=== PATIENT | female | born 1990 | race Caucasian/White ===

== ENCOUNTER 2017-02-09 12:48 | Outpatient (CLI) | payer OTHER ==
--- NOTE | 2017-02-10 04:40 | MRI Report ---
EXAM: MRI BRAIN AND INTERNAL AUDITORY CANAL (IAC) EXAM DATE: 02/09/2017 01:58 PM. CLINICAL HISTORY: DIPLOPIA. COMPARISON: None. TECHNIQUE: Multiplanar, multisequence T1-weighted and fluid-sensitive MRI sequences of the brain and IACs were performed. Other: Axial and coronal sequences through the orbits.. IV Contrast: Without and with. FINDINGS: Brain Volume: Normal for age. Parenchyma/Dura: No masses, infarcts, or hemorrhage. No white matter lesions identified. No parenchym al microhemorrhages. Orbits: The optic globes bilaterally are unremarkable. The optic nerves bilaterally are unremarkable. The remaining orbital structures bilaterally are unremarkable. Internal Auditory Canals (IACs): Normal. No cranial nerve lesion or inflammatory process identified. The cerebellopontine angles bilaterally, the internal auditory canals bilaterally, the cochleas bilat erally, and the vestibular apparatuses bilaterally are unremarkable. Ventricles/Cisterns: Normal. No hydrocephalus. Sinuses: Normal. Bones: Normal. Other: None. IMPRESSION: 1. Unremarkable noncontrast evaluation of the brain parenchyma. 2. The optic globes bilaterally, the optic nerves bilaterally, and the remaining orbital structures b ilaterally are unremarkable. 3. No cranial nerve abnormality within the visualized cisternal segments of the cranial nerves. 4. The cerebellopontine angles bilaterally, the internal auditory canals bilaterally, the cochleas bi laterally, and the vestibular apparatuses bilaterally are unremarkable. [facility] Referring Provider Line: [phone] SITE ID: [id number]
== END 2017-02-09 12:49 | disposition home or self-care (01) ==
LOC: DI 12:48
PROVIDERS: ATTEND Psychiatry & Neurology Neurology
DX: H53.2 Diplopia (principal)
CPT/HCPCS: 70551

== ENCOUNTER 2017-04-04 11:10 | Emergency (ER) | payer OTHER ==
[2017-04-04 11:24] VITALS: BP 107/77
[2017-04-04 11:58] LABS: BILIRUBIN,URINE NEGATIVE (NEGATIVE)
[2017-04-04 12:02] LABS: HCG UR QUAL NEGATIVE; UA w/ MICROSCOPIC CHARGE YES
--- NOTE | 2017-04-04 12:16 | ED Physician Documentation ---
History of Present Illness - Stated complaint Stated Complaint: FEMALE - Chief complaint Chief Complaint: General - History obtained from History obtained from: Patient - History of Present Illness Timing: Other (This is a young otherwise healthy woman who has frequent UTIs. About 2 weeks ago [place] got [place] says she has a positive urinalysis and was started on Macrobid which did not help. 2 days ago the pain moved up into her kidneys, right greater than left without nausea or fevers. She was switched to Cipro but still has not had any relief. Continues to have urinary frequency. She is on her menses currently.) Review of Systems Constitutional: reports: Reviewed and negative. denies: Fever, Chills Cardiac: reports: Reviewed and negative Respiratory: reports: Reviewed and negative PD PAST MEDICAL HISTORY - Present Medications Home Medications: Ambulatory Orders Medication Instructions Recorded Confirmed Ciprofloxacin HCl [Cipro] 500 mg PO 04/04/17 HYDROcod/ACETAM 5/325 [[place] 5/325] 1 - 2 ea PO Q6H PRN #15 tablet 04/04/17 Sulfamethoxazole/Trimethoprim 1 each PO BID 7 Days tablet 04/04/17 [Sulfamethoxazole-Tmp Ds Tablet] - Allergies Allergies/Adverse Reactions: Allergies Allergy/AdvReac Type Severity Reaction Status Date / Time No Known Drug Allergies Allergy Verified 04/04/17 11:24 PD ED PE NORMAL - Vitals Vital signs reviewed: Yes - General General: Alert and oriented X 3, No acute distress - Abdomen Abdomen: Soft, Non tender - Back Back: No CVA TTP, No spinal TTP - Neuro Neuro: Alert and oriented X 3, Normal speech - Psych Psych: Normal mood, Normal affect Results - Vitals Vitals: Vital Signs - 24 hr 04/04/17 11:22 Temperature 36.7 C Heart Rate 81 Respiratory 16 Rate Blood Pressure 107/77 O2 Saturation 100 Oxygen O2 Source Room air - Labs Labs: Laboratory Tests 04/04/17 04/04/17 11:28 11:28 Urine Color YELLOW Urine Clarity CLEAR Urine pH 6.0 Ur Specific [place] 1.020 1.020 Urine Protein NEGATIVE Urine Glucose (UA) NEGATIVE Urine Ketones NEGATIVE Urine Occult Blood MODERATE H Urine Nitrite NEGATIVE Urine Bilirubin NEGATIVE Urine Urobilinogen 0.2 (NORMAL) Ur Leukocyte Esterase NEGATIVE Urine RBC 11-25 H Urine WBC 0-3 Ur Squamous Epith Cells NONE SEEN Urine Bacteria None Seen Ur Microscopic Review INDICATED Urine HCG, Qual NEGATIVE PD MEDICAL DECISION MAKING - ED course ED course: 27-year-old woman with persistent UTI symptoms and now flank pain, urinalysis shows only blood, but she is on her menses. Pattern does not fit renal colic. Could be incompletely treated pyelonephritis, we also discussed the possibility of interstitial cystitis or muscular back pain. I will switch her up to Bactrim and she needs some pain pills to. Departure - Departure Disposition: 01 Home, Self Care Clinical Impression: Pyelonephritis Condition: Good Record reviewed to determine appropriate education?: Yes Instructions: Pyelonephritis Dc Prescriptions: HYDROcod/ACETAM 5/325 [[place] 5/325] 1 - 2 ea PO Q6H PRN #15 tablet PRN Reason: Pain Sulfamethoxazole/Trimethoprim [Sulfamethoxazole-Tmp Ds Tablet] 1 each PO BID 7 Days tablet Comments: [place] 2 [place]. Return if worse. Do not drink or drive while taking narcotic pain medication. Note that many narcotic pain relievers also contain Tylenol/acetaminophen. Please ensure that your total dose of acetaminophen from all sources does not exceed 3 g (3000 mg) per day. You may get constipated while on this medication. Take a stool softener such as Colace twice a day while you are on it. Also add an [id number] laxative such as senna or MiraLAX on any day that you do not have a bowel movement. If you received a narcotic pain medication or sedative while in the emergency department, do not drive for the next 24 hours. Discharge Date/Time: 04/04/17 12:19
[2017-04-04 12:34] LABS: WBC,URINE 0-3 /HPF (0-5)
== END 2017-04-04 12:19 | disposition home or self-care (01) ==
LOC: ED 11:10
DX: N12 Tubulo-interstitial nephritis, not specified as acute or chronic (principal)
CPT/HCPCS: 81001; 81003; 81025; 99283

== ENCOUNTER 2017-12-06 10:21 | Emergency (ER) | payer OTHER ==
[2017-12-06] MEDS ORDERED: SUCRALFATE 1 GM/10 ML UDC PO STA (11:14)
[2017-12-06] MEDS ORDERED: MAG HYDROX/AL HYDROX/SIMETH 30 ML UDC PO STA (11:14)
[2017-12-06] MEDS ORDERED: PHENobarb/HYOSCY/ATROPINE/SCOP 5 ML UDC PO STA (11:14)
[2017-12-06] MEDS ORDERED: LIDOCAINE VISCOUS 2% 15 ML UDC MM STA (11:14)
[2017-12-06] MEDS ORDERED: FAMOTIDINE 20 MG TABLET PO STA (11:15)
--- NOTE | 2017-12-06 11:16 | ED Physician Documentation ---
History of Present Illness - Stated complaint Stated Complaint: CHEST PX/SOA - Chief complaint Chief Complaint: General - History obtained from History obtained from: Patient - History of Present Illness Timing: How many weeks ago (several) Pain level max: 7 Pain level now: 5 - Additonal information Additional information: Patient is a 27-year-old female who presents to the emergency department complaining of substernal chest pain for the past several weeks. This used to occur only at night when she laid down to go to sleep, but has now become constant. Has seen her primary care provider for this. Has not had any testing done. She does smoke. She also uses control. She has not had any recent travel or immobilization. No calf pain or swelling. States that the pain worsens when she eats as well. Has not taken any medications. Review of Systems Constitutional: denies: Fever, Chills Throat: denies: Sore throat Respiratory: denies: Cough, Wheezing GI: denies: Vomiting, Diarrhea : denies: Now EGA Skin: denies: Rash Musculoskeletal: denies: Neck pain, Back pain Neurologic: denies: Headache PD PAST MEDICAL HISTORY - Past Medical History Past Medical History: No - Past Surgical History Past Surgical History: No - Present Medications Home Medications: Ambulatory Orders Medication Instructions Recorded Confirmed Famotidine [Pepcid] 20 mg PO BID #60 tablet 12/06/17 Meloxicam [Mobic] 15 mg PO DAILY PRN #20 tablet 12/06/17 - Allergies Allergies/Adverse Reactions: Allergies Allergy/AdvReac Type Severity Reaction Status Date / Time No Known Drug Allergies Allergy Verified 12/06/17 10:32 - Living Situation Living Situation: reports: With family Living Arrangement: reports: At home - Social History Does the pt smoke?: Yes Does the pt drink ETOH?: Yes Does the pt have substance abuse?: No - Family History Family history: reports: Non contributory PD ED PE NORMAL - Vitals Vital signs reviewed: Yes - General General: Alert and oriented X 3, No acute distress - HEENT HEENT: Moist mucous membranes - Neck Neck: Supple, no meningeal sign - Cardiac Cardiac: RRR, Strong equal pulses - Respiratory Respiratory: No respiratory distress, Clear bilaterally - Abdomen Abdomen: Soft, Other (Mild epigastric tenderness to palpation, no peritoneal signs. Negative Recinos sign.) - Back Back: No CVA TTP - Derm Derm: Warm and dry - Extremities Extremities: No edema, No calf tenderness / cord - Neuro Neuro: Alert and oriented X 3 - Psych Psych: Normal mood, Normal affect Results - Vitals Vitals: Vital Signs - 24 hr 12/06/17 12/06/17 12/06/17 10:24 11:18 12:44 Temperature 36.7 C 36.7 C 36.6 C Heart Rate 78 64 57 L Respiratory 16 14 12 Rate Blood Pressure 114/74 106/78 96/67 O2 Saturation 100 100 98 Oxygen O2 Source Room air - EKG (time done) 1031 Rate: Rate (enter#) (91) Rhythm: NSR [place]: Normal Intervals: Normal [place] QRS: Normal Ischemia: Normal ST segments - Labs Labs: Laboratory Tests 12/06/17 12/06/17 12/06/17 11:30 11:30 11:30 WBC 6.6 RBC 4.44 Hgb 13.3 Hct 39.8 MCV 89.6 MCH 30.1 MCHC 33.6 RDW 13.7 Plt Count 222 MPV 6.4 L Neut # (Auto) 3.7 Lymph # (Auto) 2.3 [place] # (Auto) 0.5 Eos # (Auto) 0.1 Baso # (Auto) 0.1 Absolute Nucleated RBC 0.00 Nucleated RBC % 0.0 D-Dimer Sodium 135 Potassium 3.6 Chloride 106 Carbon Dioxide 24 Anion Gap 5.0 L BUN 13 Creatinine 0.8 Estimated GFR (MDRD) 85 L Glucose 97 Calcium 9.0 Total Bilirubin 0.5 AST 19 ALT 18 Alkaline Phosphatase 64 Troponin I < 0.04 Total Protein 6.8 Albumin 4.2 Globulin 2.6 Albumin/Globulin Ratio 1.6 Lipase 31 12/06/17 11:30 WBC RBC Hgb Hct MCV MCH MCHC RDW Plt Count MPV Neut # (Auto) Lymph # (Auto) [place] # (Auto) Eos # (Auto) Baso # (Auto) Absolute Nucleated RBC Nucleated RBC % D-Dimer < 200.0 L Sodium Potassium Chloride Carbon Dioxide Anion Gap BUN Creatinine Estimated GFR (MDRD) Glucose Calcium Total Bilirubin AST ALT Alkaline Phosphatase Troponin I Total Protein Albumin Globulin Albumin/Globulin Ratio Lipase - Rads (name of study) cxr Radiology: Prelim report reviewed, EMP read contemporaneously, See rad report ( normal) PD MEDICAL DECISION MAKING - ED course Complexity details: reviewed results, re-evaluated patient, considered differential, d/w patient ED course: Patient is a 27-year-old female who presents to the emergency department with chest pain for the past several weeks, becoming more constant now. Unclear etiology, possible gastritis versus GERD? Possible pleurisy? No evidence of pulmonary embolus. No evidence of acute coronary syndrome. No pneumothorax. No aortic dissection. Does feel better after GI cocktail. Will place her on anti-inflammatories as well as H2 blockers for home and follow-up with her doctor. Patient counseled regarding signs and symptoms for which I believe and urgent re-evaluation would be necessary. Patient with good understanding of and agreement to plan and is comfortable going home at this time This document was made in part using voice recognition software. While efforts are made to proofread this document, sound alike and grammatical errors may occur. Departure - Departure Disposition: 01 Home, Self Care Clinical Impression: Chest pain Qualifiers: Chest pain type: unspecified Qualified Code(s): R07.9 - Chest pain, unspecified Condition: Good Instructions: ED Chest Pain Atypical Unkn Cause Follow-Up: Monica Yanes ARNP [Primary Care Provider] - Within 1 week Prescriptions: Famotidine [Pepcid] 20 mg PO BID #60 tablet Meloxicam [Mobic] 15 mg PO DAILY PRN #20 tablet PRN Reason: pain Comments: Return if you worsen. The cause of your symptoms is unclear. Follow-up with your doctor for further care. Discharge Date/Time: 12/06/17 12:48
[2017-12-06 11:37] LABS: BASOPHILS # (AUTO) 0.1 10^3/uL (0.0-0.1); BASOPHILS % (AUTO) 0.8 %; EOSINOPHILS # (AUTO) 0.1 10^3/uL (0.0-0.7); EOSINOPHILS % (AUTO) 1.5 %; HGB - HEMOGLOBIN 13.3 g/dL (12.0-16.0); LYMPHOCYTES # (AUTO) 2.3 10^3/uL (1.5-3.5); LYMPHOCYTES % (AUTO) 34.2 %; MEAN CORPUSCULAR HEMOGLOBIN 30.1 pg (27.0-31.0); MEAN CORPUSCULAR HGB CONC 33.6 g/dL (32.0-36.0); MEAN CORPUSCULAR VOLUME 89.6 fL (81.0-99.0); MEAN PLATELET VOLUME 6.4 fL (7.9-10.8); MONOCYTES # (AUTO) 0.5 10^3/uL (0.0-1.0); MONOCYTES % (AUTO) 7.2 %; NEUTROPHILS # (AUTO) 3.7 10^3/uL (1.5-6.6); NEUTROPHILS % (AUTO) 56.3 %; PLT - PLATELET COUNT 222 10^3/uL (130-450); RED BLOOD COUNT 4.44 10^6/uL (4.20-5.40); RED CELL DISTRIBUTION WIDTH 13.7 % (12.0-15.0); WHITE BLOOD COUNT 6.6 x10^3/uL (4.8-10.8)
--- NOTE | 2017-12-06 11:41 | XRAY Report ---
EXAM: CHEST RADIOGRAPHY EXAM DATE: 12/06/2017 11:28 AM. CLINICAL HISTORY: Chest pain. COMPARISON: None available. TECHNIQUE: 1 view. FINDINGS: Lungs/Pleura: No focal opacities evident. No pleural effusion. No pneumothorax. Mediastinum: Within exam limitations, the cardiomediastinal contour is normal. Other: None. IMPRESSION: Grossly clear. [facility] Referring Provider Line: [phone] SITE ID: [id number]
[2017-12-06 11:50] LABS: ALBUMIN 4.2 g/dL (3.2-5.5); ALBUMIN/GLOBULIN RATIO 1.6 (1.0-2.2); BILIRUBIN,TOTAL 0.5 mg/dL (0.2-1.0); CREATININE 0.8 mg/dL (0.4-1.0); TOTAL PROTEIN 6.8 g/dL (6.7-8.2)
[2017-12-06] MEDS ORDERED: DEXAMETHASONE 10 MG/ML VIAL PO STA (12:15)
[2017-12-06] MEDS ORDERED: MELOXICAM 7.5 MG TABLET PO STA (12:16)
[2017-12-06 12:45] VITALS: BP 96/67
== END 2017-12-06 12:48 | disposition home or self-care (01) ==
LOC: ED 10:21
DX: R07.9 Chest pain, unspecified (principal); F17.200 Nicotine dependence, unspecified, uncomplicated
CPT/HCPCS: 71045; 80053; 83690; 84484; 85025; 85379; 93005; 99283; 99284; A9270; 36415

== ENCOUNTER 2017-12-28 18:37 | Emergency (ER) | payer OTHER ==
[2017-12-28 19:03] LABS: BILIRUBIN,URINE NEGATIVE (NEGATIVE); GLUCOSE, URINE (UA) NEGATIVE (NEGATIVE); KETONES,URINE (UA) NEGATIVE (NEGATIVE); LEUKOCYTE ESTERASE, URINE NEGATIVE (NEGATIVE); NITRITE,URINE NEGATIVE (NEGATIVE); OCCULT BLOOD,URINE NEGATIVE (NEGATIVE); PROTEIN,URINE NEGATIVE (NEGATIVE); UROBILINOGEN,URINE 0.2 (NORMAL) E.U./dL (NORMAL)
[2017-12-28 19:06] LABS: CLARITY,URINE CLEAR (CLEAR); HCG UR QUAL NEGATIVE
--- NOTE | 2017-12-28 20:00 | ED Physician Documentation ---
PD HPI ABD PAIN - Stated complaint Stated Complaint: ABD/LT LEG PX - Chief complaint Chief Complaint: Abd Pain - History obtained from History obtained from: Patient - History of Present Illness Timing - onset: Today Timing - duration: Days (1) Timing - details: Abrupt onset, Still present, Waxing and waning Quality: Cramping, Aching, Pain Location: Suprapubic, LLQ Radiation: Lower back Improved by: No: Eating, BM Worsened by: Position (worse lying down and on left side), Palpation. No: Eating, Breathing Associated symptoms: Nausea, Dysuria (mild today), Vaginal dc (clear watery today). No: Fever, Vomiting, Diarrhea, Constipation, Loss of appetite, Vaginal bleeding Similar symptoms before: Has not had sx before Recently seen: Clinic (had Nexplanon removed 1 1/2 months ago. Otherwise no recent visits.) Review of Systems Constitutional: reports: Myalgias. denies: Fever, Chills Nose: denies: Rhinorrhea / runny nose, Congestion Throat: denies: Sore throat Cardiac: denies: Chest pain / pressure Respiratory: denies: Dyspnea, Cough GI: reports: Abdominal Pain (lower abd central and left), Nausea. denies: Abdominal Swelling, Vomiting, Constipation, Diarrhea : reports: Dysuria, Discharge (watery), Irregular menses (had had nexplanon until recently. Removed 1 1/2 months ago.). 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 : None HEENT: None Psych: Anxiety Musculoskeletal: None Derm: None - Past Surgical History Past Surgical History: No /[employer] ARCHITECT: section - Present Medications Home Medications: Ambulatory Orders Medication Instructions Recorded Confirmed Aspirin [Adult Aspirin] 81 mg 12/28/17 HYDROcod/ACETAM 5/325 [[place] 5/325] 1 tab PO Q6H PRN #12 tablet 12/28/17 Metronidazole [Flagyl] 500 mg PO BID #14 tablet 12/28/17 Naproxen 375 mg PO BID #20 tablet 12/28/17 - Allergies Allergies/Adverse Reactions: Allergies Allergy/AdvReac Type Severity Reaction Status Date / Time No Known Drug Allergies Allergy Verified 12/06/17 10:32 - Social History Does the pt smoke?: Yes Smoking Status: Current every day smoker Does the pt drink ETOH?: Yes Does the pt have substance abuse?: No - Immunizations Immunizations are current?: Yes - POLST Patient has POLST: No PD ED PE NORMAL - Vitals Vital signs reviewed: Yes - General General: Alert and oriented X 3, Well developed/nourished - HEENT HEENT: Pharynx benign - Neck Neck: Supple, no meningeal sign, No adenopathy - Cardiac Cardiac: RRR, No murmur - Respiratory Respiratory: Clear bilaterally - Abdomen Abdomen: Normal bowel sounds, Soft, Non distended, No organomegaly, Other (mild tenderness without guarding lower abd and left side. No percussion tenderness. ) - Female Female : Surface Hydrologist present, Other (external normal. Vault with clear/mucous watery discharge (aside from U/S gel). No cervicitis per se. Vaginal harvey some red. ) - Rectal Rectal: Deferred - Back Back: No CVA TTP - Derm Derm: Normal color, Warm and dry, No rash Results - Vitals Vitals: Vital Signs - 24 hr 12/28/17 12/28/17 12/28/17 18:50 22:09 22:13 Temperature 36.6 C Heart Rate 86 66 Respiratory 16 14 Rate Blood Pressure 105/83 H 101/70 O2 Saturation 100 100 12/28/17 23:59 Temperature 36.7 C Heart Rate 60 Respiratory 18 Rate Blood Pressure 102/73 O2 Saturation 99 Oxygen O2 Source Room air - Labs Labs: Microbiology 12/28/17 23:05 Wet Prep - Final Vaginal Laboratory Tests 12/28/17 18:45 Urine Color LT. YELLOW Urine Clarity CLEAR Urine pH 6.0 Ur Specific [place] <=1.005 Urine Protein NEGATIVE Urine Glucose (UA) NEGATIVE Urine Ketones NEGATIVE Urine Occult Blood NEGATIVE Urine Nitrite NEGATIVE Urine Bilirubin NEGATIVE Urine Urobilinogen 0.2 (NORMAL) Ur Leukocyte Esterase NEGATIVE Ur Microscopic Review NOT INDICATED Urine Culture Comments NOT INDICATED Urine HCG, Qual NEGATIVE - Rads (name of study) pelvic U/S Radiology: Prelim report reviewed (small cyst on right. No free fluid. Normal flow in ovaries. ) PD MEDICAL DECISION MAKING - ED course Complexity details: reviewed results, considered differential, d/w patient - Sepsis Event Vital Signs: Vital Signs - 24 hr 12/28/17 12/28/17 12/28/17 18:50 22:09 22:13 Temperature 36.6 C Heart Rate 86 66 Respiratory 16 14 Rate Blood Pressure 105/83 H 101/70 O2 Saturation 100 100 12/28/17 23:59 Temperature 36.7 C Heart Rate 60 Respiratory 18 Rate Blood Pressure 102/73 O2 Saturation 99 Oxygen O2 Source Room air Departure - Departure Disposition: 01 Home, Self Care Clinical Impression: Pelvic pain, Bacterial vaginitis Condition: Stable Record reviewed to determine appropriate education?: Yes Instructions: ED Vaginosis Bacterial Follow-Up: Cecilia Covarrubias MD [Primary Care Provider] - Prescriptions: HYDROcod/ACETAM 5/325 [[place] 5/325] 1 tab PO Q6H PRN #12 tablet PRN Reason: Pain Metronidazole [Flagyl] 500 mg PO BID #14 tablet Naproxen 375 mg PO BID #20 tablet Comments: There are bacteria seen on the swab vaginal. This shows a bacterial vaginosis which is bacteria that are present naturally in the vaginal area that over grew and are causing symptoms. We did do a culture for other type infections and that will result in 2-3 days and will call you if those are positive. For now we will treat the bacterial vaginitis with metronidazole twice daily for a week. The inflammation and pain from it will be treated with naproxen twice daily for a week and add Tylenol or hydrocodone if needed for pain. This should taper down and improve over the next 3-5 days. Recheck if not better during that time. Drink lots of fluids. No alcohol use during the next week while taking the antibiotic as it will interact and cause symptoms. Discharge Date/Time: 12/29/17 00:08
[2017-12-28] MEDS: MORPHINE 10 MG/ML VIAL IVP STA ×2 (21:01→23:18)
[2017-12-28] MEDS: KETOROLAC 60 MG/2 ML VIAL IVP STA (21:01)
[2017-12-28] MEDS: ONDANSETRON 4 MG/2 ML VIAL IVP STA (21:01)
[2017-12-28] MEDS: SODIUM CHLORIDE 0.9% 1,000 ML IV ONE (21:02)
--- NOTE | 2017-12-28 21:55 | Ultrasound Report ---
Procedure Date: 12/28/2017 Accession Number: [id number] / [id number] Procedure: US - Pelvic w/Transvag+Doppler Ltd CPT Code: FULL RESULT: EXAM: PELVIC ULTRASOUND. EXAM DATE: 12/28/2017 09:25 PM. CLINICAL HISTORY: Lower abdominal pain for few days. LMP 11/06/2017. . COMPARISON: None. TECHNIQUE: Realtime transabdominal pelvic scan performed to identify the uterus and adnexa and as an overview of other pelvic structures, followed by transvaginal scan to provide greater detail of the uterus and adnexa, with static image documentation. FINDINGS: Uterus: 8.5 x 3.5 x 5.7 cm, volume 88.7 cc. Anteverted position. Normal overall size and echotexture. Masses: None. Endometrium: 5 mm. Normal. Cervix: Unremarkable. Right Ovary: 4.1 x 3.0 x 4.1 cm, volume 26 cc. Normal blood flow. 2.6 x 2.2 x 2.6 cm simple cyst. Left Ovary: 2.5 x 2.5 x 2.4 cm, volume 7.7 cc. Normal echotexture and blood flow. Free Fluid: None. Other: None. IMPRESSION: 1. No ovarian torsion. 2. 2.6 cm simple right ovarian cyst. [facility]
[2017-12-28] MEDS: HYDROcod/ACET 5/325 Prepack 4 PO STA (23:18)
[2017-12-28] MEDS: metroNIDAZOLE 250 MG TABLET PO STA (23:18)
[2017-12-28 23:59] VITALS: BP 102/73
== END 2017-12-29 00:08 | disposition home or self-care (01) ==
LOC: ED 18:37
DX: R10.2 Pelvic and perineal pain (principal); N76.0 Acute vaginitis; B96.89 Other specified bacterial agents as the cause of diseases classified elsewhere; F17.200 Nicotine dependence, unspecified, uncomplicated; Z79.82 Long term (current) use of aspirin
CPT/HCPCS: 76830; 76856; 81003; 81025; 87210; 87491; 87591; 93976; 96361; 96374; 96375; 96376; 99284; A9270; 81001; 87086

== ENCOUNTER 2017-12-30 19:13 | Emergency (ER) | payer OTHER ==
[2017-12-30 19:18] VITALS: BP 137/87
--- NOTE | 2017-12-30 21:38 | ED Physician Documentation ---
History of Present Illness - Stated complaint Stated Complaint: CHEST PX/NUMBNESS - Chief complaint Chief Complaint: General - History obtained from History obtained from: Patient - History of Present Illness Timing: How many days ago (2) Pain level max: 0 Pain level now: 0 Improved by: nothing Worsened by: taking the flagyl - Additonal information Additional information: Patient is a 27-year-old female who was recently seen and treated for bacterial vaginitis. She was placed on Flagyl she states approximately 2 hours after taking her first dose she developed left-sided tingling on her hand and foot. This has since resolved. It recurred again when she took her next dose of Flagyl. She believes that she is having side effects of the medication. Denies any chest pain to me. Denies any vomiting or diarrhea. No dysuria. She was seen recently for chest pain with a negative workup. Review of Systems Constitutional: denies: Fever, Chills Ears: denies: Ear pain Nose: denies: Rhinorrhea / runny nose, Congestion GI: denies: Nausea, Vomiting, Diarrhea : denies: Now EGA Neurologic: reports: Numbness (tingling, but no numbness). 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 - Present Medications Home Medications: Ambulatory Orders Medication Instructions Recorded Confirmed Aspirin [Adult Aspirin] 81 mg 12/28/17 HYDROcod/ACETAM 5/325 [[place] 5/325] 1 tab PO Q6H PRN #12 tablet 12/28/17 Metronidazole [Flagyl] 500 mg PO BID #14 tablet 12/28/17 Naproxen 375 mg PO BID #20 tablet 12/28/17 Clindamycin HCl [Clindamycin 300MG 300 mg PO BID #14 capsule 12/30/17 CAP] - Allergies Allergies/Adverse Reactions: Allergies Allergy/AdvReac Type Severity Reaction Status Date / Time No Known Drug Allergies Allergy Verified 12/30/17 19:18 - Social History Does the pt smoke?: Yes Smoking Status: Current every day smoker Does the pt drink ETOH?: Yes Does the pt have substance abuse?: No - Immunizations Immunizations are current?: Yes - POLST Patient has POLST: No PD ED PE NORMAL - Vitals Vital signs reviewed: Yes - General General: Alert and oriented X 3, No acute distress - HEENT HEENT: PERRL, Ears normal, Moist mucous membranes, Pharynx benign - Neck Neck: Supple, no meningeal sign, No JVD, No bruit - Cardiac Cardiac: RRR, No murmur, Strong equal pulses - Respiratory Respiratory: No respiratory distress, Clear bilaterally - Abdomen Abdomen: Normal bowel sounds, Soft, Non tender, Non distended - Back Back: No spinal TTP - Derm Derm: Warm and dry - Extremities Extremities: Normal ROM s pain, No edema - Neuro Neuro: Alert and oriented X 3, independent insurance 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 Possible side effects from the Flagyl as this does coincide when she takes the pills. Therefore we will change her to clindamycin and see how she tolerates this. She is otherwise well-appearing, nontoxic. NIH stroke scale of 0. Patient counseled regarding signs and symptoms for which I believe and urgent re-evaluation would be necessary. Patient with good understanding of and agreement to plan and is comfortable going home at this time This document was made in part using voice recognition software. While efforts are made to proofread this document, sound alike and grammatical errors may occur. - Sepsis Event Vital Signs: Oxygen O2 Source Room air Departure - Departure Disposition: 01 Home, Self Care Clinical Impression: Bacterial vaginitis Condition: Good Instructions: ED Vaginosis Bacterial Follow-Up: FAUSTO TOSCANO PA-C [Primary Care Provider] - Within 3 Days Prescriptions: Clindamycin HCl [Clindamycin 300MG CAP] 300 mg PO BID #14 capsule Comments: Stop the metronidazole/Flagyl. It appears that you are having a reaction to this. Will instead trial you on clindamycin to see if this resolves your symptoms. Return if you worsen Discharge Date/Time: 12/30/17 21:41
== END 2017-12-30 21:41 | disposition home or self-care (01) ==
LOC: ED 19:13
DX: N76.0 Acute vaginitis (principal); F17.200 Nicotine dependence, unspecified, uncomplicated
CPT/HCPCS: 93005; 99283

== ENCOUNTER 2018-01-02 14:36 | Emergency (ER) | payer OTHER ==
[2018-01-02] MEDS ORDERED: MAG HYDROX/AL HYDROX/SIMETH 30 ML UDC PO STA (15:03)
[2018-01-02] MEDS ORDERED: LIDOCAINE VISCOUS 2% 15 ML UDC MM STA (15:03)
--- NOTE | 2018-01-02 15:10 | ED Physician Documentation ---
PD HPI ABD PAIN - Stated complaint Stated Complaint: LT SIDE PX - Chief complaint Chief Complaint: Abd Pain - History obtained from History obtained from: Patient - History of Present Illness Timing - onset: Other (27-year-old woman with history of 3 C-sections presents with left flank and upper abdominal pain radiating to the left pelvis that is been going on for several days. She was seen here on Wednesday and diagnosed with BV, wet mount showed clue cells but less than 20%. She denies any vaginal discharge or itching. She was taking pain medication and Flagyl. She had a side effect from the Flagyl and was switched to clindamycin but continues to have the pain without change. She says the pain does get worse if she eats but also if she moves and she has been nauseous with a poor appetite but she has not had any vomiting. There is no fever or hematuria or urinary complaints except for urinary frequency. She doubts . She has had kidney stone in the past but says this is somewhat different.) Review of Systems Constitutional: reports: Fatigue. denies: Fever, Chills Throat: denies: Sore throat Cardiac: denies: Chest pain / pressure, Palpitations Respiratory: denies: Dyspnea, Cough GI: reports: Abdominal Pain, Nausea. denies: Vomiting, Constipation, Diarrhea, Hematemesis, Bloody / black stool : reports: Frequency. denies: Dysuria PD PAST MEDICAL HISTORY - Past Medical History Cardiovascular: None Respiratory: None Neuro: None Endocrine/Autoimmune: None GI: None SERVICE DIRECTOR: None : None HEENT: None Psych: Anxiety Musculoskeletal: None Derm: None - Past Surgical History Past Surgical History: No /SERVICE DIRECTOR: section - Present Medications Home Medications: Ambulatory Orders Medication Instructions Recorded Confirmed Aspirin [Adult Aspirin] 81 mg 12/28/17 HYDROcod/ACETAM 5/325 [[place] 5/325] 1 tab PO Q6H PRN #12 tablet 12/28/17 Metronidazole [Flagyl] 500 mg PO BID #14 tablet 12/28/17 Naproxen 375 mg PO BID #20 tablet 12/28/17 Clindamycin HCl [Clindamycin 300MG 300 mg PO BID #14 capsule 12/30/17 CAP] Cyclobenzaprine [Flexeril] 10 mg PO TID PRN #20 tablet 01/02/18 Polyethylene Glycol 3350 [Miralax] 17 gm PO DAILY PRN #1 bottle 01/02/18 - Allergies Allergies/Adverse Reactions: Allergies Allergy/AdvReac Type Severity Reaction Status Date / Time No Known Drug Allergies Allergy Verified 12/30/17 19:18 - Social History Does the pt smoke?: Yes Smoking Status: Current every day smoker Does the pt drink ETOH?: Yes Does the pt have substance abuse?: No - Family History Family history: reports: Non contributory - Immunizations Immunizations are current?: Yes - POLST Patient has POLST: No PD ED PE NORMAL - Vitals Vital signs reviewed: Yes - General General: Alert and oriented X 3, No acute distress - Cardiac Cardiac: RRR, No murmur - Respiratory Respiratory: No respiratory distress, Clear bilaterally - Abdomen Abdomen: Normal bowel sounds, Soft, Non tender - Back Back: No CVA TTP, No spinal TTP - Extremities Extremities: No edema, No calf tenderness / cord - Neuro Neuro: Alert and oriented X 3, Normal speech Results - Vitals Vitals: Vital Signs - 24 hr 01/02/18 01/02/18 14:44 16:29 Temperature 36.8 C 36.8 C Heart Rate 96 74 Respiratory 18 16 Rate Blood Pressure 113/80 107/68 O2 Saturation 100 99 Oxygen O2 Source Room air - Labs Labs: Laboratory Tests 01/02/18 01/02/18 01/02/18 15:10 15:10 15:13 WBC 8.4 RBC 4.61 Hgb 14.2 Hct 42.7 MCV 92.6 MCH 30.8 MCHC 33.2 RDW 13.9 Plt Count 256 MPV 6.6 L Neut # (Auto) 5.6 Lymph # (Auto) 2.2 Hooker # (Auto) 0.5 Eos # (Auto) 0.1 Baso # (Auto) 0.0 Absolute Nucleated RBC 0.00 Nucleated RBC % 0.0 Sodium Potassium Chloride Carbon Dioxide Anion Gap BUN Creatinine Estimated GFR (MDRD) Glucose Calcium Total Bilirubin AST ALT Alkaline Phosphatase Total Protein Albumin Globulin Albumin/Globulin Ratio Lipase Urine Color YELLOW Urine Clarity CLEAR Urine pH 6.0 Ur Specific [place] <=1.005 <=1.005 Urine Protein NEGATIVE Urine Glucose (UA) NEGATIVE Urine Ketones NEGATIVE Urine Occult Blood NEGATIVE Urine Nitrite NEGATIVE Urine Bilirubin NEGATIVE Urine Urobilinogen 0.2 (NORMAL) Ur Leukocyte Esterase NEGATIVE Ur Microscopic Review NOT INDICATED Urine Culture Comments NOT INDICATED Urine HCG, Qual NEGATIVE 01/02/18 15:13 WBC RBC Hgb Hct MCV MCH MCHC RDW Plt Count MPV Neut # (Auto) Lymph # (Auto) Hooker # (Auto) Eos # (Auto) Baso # (Auto) Absolute Nucleated RBC Nucleated RBC % Sodium 137 Potassium 3.8 Chloride 106 Carbon Dioxide 25 Anion Gap 6.0 BUN 9 Creatinine 0.7 Estimated GFR (MDRD) 99 Glucose 98 Calcium 9.5 Total Bilirubin 0.4 AST 22 ALT 23 Alkaline Phosphatase 57 Total Protein 7.4 Albumin 4.9 Globulin 2.5 Albumin/Globulin Ratio 2.0 Lipase 26 Urine Color Urine Clarity Urine pH Ur Specific [place] Urine Protein Urine Glucose (UA) Urine Ketones Urine Occult Blood Urine Nitrite Urine Bilirubin Urine Urobilinogen Ur Leukocyte Esterase Ur Microscopic Review Urine Culture Comments Urine HCG, Qual - Rads (name of study) CT KUB Radiology: EMP read contemporaneously (Constipation, kidney stones but no ureteral stones. Right adnexal mass which she was aware of and is a chronic issue.) PD MEDICAL DECISION MAKING - ED course ED course: She presents left upper quadrant and flank pain that radiates into the pelvis, there is a positional movement related components but also a oral intake related components. She is not short of breath. We tried a GI cocktail and that was completely ineffective. There is still no hematuria. CT scan showed a right adnexal mass which she says she has a known ovarian cyst there and it is on the wrong side to explain her pain, she does have constipation/obstipation, however she says that her symptoms of constipation or after she started pain medicine for this issue so it is unclear whether that is "chicken" or "egg." She did have some relief with muscle relaxer here. - Sepsis Event Vital Signs: Vital Signs - 24 hr 01/02/18 01/02/18 14:44 16:29 Temperature 36.8 C 36.8 C Heart Rate 96 74 Respiratory 18 16 Rate Blood Pressure 113/80 107/68 O2 Saturation 100 99 Oxygen O2 Source Room air Departure - Departure Disposition: 01 Home, Self Care Clinical Impression: Pelvic pain, Right ovarian cyst, Kidney stones Abdominal pain Qualifiers: Abdominal location: left upper quadrant Qualified Code(s): R10.12 - Left upper quadrant pain Constipation Qualifiers: Constipation type: slow transit constipation Qualified Code(s): K59.01 - Slow transit constipation Condition: Good Record reviewed to determine appropriate education?: Yes Instructions: ED Abdominal Pain Unkn Cause, ED Constipation Prescriptions: Cyclobenzaprine [Flexeril] 10 mg PO TID PRN #20 tablet PRN Reason: Pain Polyethylene Glycol 3350 [Miralax] 17 gm PO DAILY PRN #1 bottle PRN Reason: Constipation Comments: Call your doctor to arrange a follow-up appointment, make the next available appointment. In the interim, return anytime if worse or if new symptoms develop. Discharge Date/Time: 01/02/18 16:31
[2018-01-02 15:22] LABS: BILIRUBIN,URINE NEGATIVE (NEGATIVE); GLUCOSE, URINE (UA) NEGATIVE (NEGATIVE); KETONES,URINE (UA) NEGATIVE (NEGATIVE); LEUKOCYTE ESTERASE, URINE NEGATIVE (NEGATIVE); NITRITE,URINE NEGATIVE (NEGATIVE); OCCULT BLOOD,URINE NEGATIVE (NEGATIVE); PROTEIN,URINE NEGATIVE (NEGATIVE); UROBILINOGEN,URINE 0.2 (NORMAL) E.U./dL (NORMAL)
[2018-01-02 15:22] LABS: BASOPHILS % (AUTO) 0.5 %; EOSINOPHILS # (AUTO) 0.1 10^3/uL (0.0-0.7); EOSINOPHILS % (AUTO) 0.7 %; HGB - HEMOGLOBIN 14.2 g/dL (12.0-16.0); LYMPHOCYTES # (AUTO) 2.2 10^3/uL (1.5-3.5); LYMPHOCYTES % (AUTO) 26.1 %; MEAN CORPUSCULAR HEMOGLOBIN 30.8 pg (27.0-31.0); MEAN CORPUSCULAR HGB CONC 33.2 g/dL (32.0-36.0); MEAN CORPUSCULAR VOLUME 92.6 fL (81.0-99.0); MEAN PLATELET VOLUME 6.6 fL (7.9-10.8); MONOCYTES # (AUTO) 0.5 10^3/uL (0.0-1.0); MONOCYTES % (AUTO) 6.1 %; NEUTROPHILS # (AUTO) 5.6 10^3/uL (1.5-6.6); NEUTROPHILS % (AUTO) 66.6 %; PLT - PLATELET COUNT 256 10^3/uL (130-450); RED BLOOD COUNT 4.61 10^6/uL (4.20-5.40); RED CELL DISTRIBUTION WIDTH 13.9 % (12.0-15.0); WHITE BLOOD COUNT 8.4 x10^3/uL (4.8-10.8)
[2018-01-02 15:27] LABS: CLARITY,URINE CLEAR (CLEAR); HCG UR QUAL NEGATIVE
[2018-01-02] MEDS ORDERED: CYCLOBENZAPRINE 10 MG TABLET PO STA (15:30)
[2018-01-02 15:33] LABS: ALBUMIN 4.9 g/dL (3.2-5.5); BILIRUBIN,TOTAL 0.4 mg/dL (0.2-1.0); CALCIUM 9.5 mg/dL (8.5-10.3); CREATININE 0.7 mg/dL (0.4-1.0); TOTAL PROTEIN 7.4 g/dL (6.7-8.2)
--- NOTE | 2018-01-02 16:07 | CT Report ---
Procedure Date: 01/02/2018 Accession Number: [id number] / [id number] Procedure: CT - Abdomen/Pelvis W/O CPT Code: FULL RESULT: EXAM: CT ABDOMEN AND PELVIS EXAM DATE: 01/02/2018 03:48 PM. CLINICAL HISTORY: L flank pain. COMPARISONS: None. TECHNIQUE: Routine helical CT imaging was performed through the abdomen and pelvis. IV contrast: None. Enteric contrast: None. Reconstructions: Coronal and sagittal. In accordance with CT protocol optimization, one or more of the following dose reduction techniques were utilized for this exam: automated exposure control, adjustment of mA and/or KV based on patient size, or use of iterative reconstructive technique. FINDINGS: Lung Bases: Unremarkable. Liver: Normal. No masses. Gallbladder/Bile Ducts: Unremarkable. Spleen: Normal. Pancreas: Normal. Adrenal Glands: Normal. Kidneys: No hydronephrosis. No evidence of obstructing calculus. A single punctate nonobstructing calculus measuring 1-2 mm is seen in the upper pole of the left kidney. There are multiple (at least 8 punctate nonobstructing calculi in the right kidney. The largest measures approximate 3 mm in the midpole. Peritoneal Cavity/Bowel: Greater than average amount of stool is seen within the colon. No free fluid, free air or adenopathy. No masses or acute inflammatory process. The appendix is well visualized and normal. Pelvic Organs: A 5 cm cystic structures seen in the right adnexa. Several pelvic phleboliths are present. Otherwise unremarkable. Vasculature: No aneurysms or other significant abnormality. Bones: No significant abnormality. Other: None. IMPRESSION: 1. No evidence of obstructing stone renal or ureteral stone. 2. Multiple punctate nonobstructing calculi are seen within both kidneys, right greater than left, as described above. 3. Greater than average amount of stool is seen within the colon. In the right clinical setting this could be consistent with constipation. 4. 5 cm cystic structure in the right adnexa. This could be further evaluated with ultrasound if clinically indicated. RADIA
[2018-01-02 16:30] VITALS: BP 107/68
== END 2018-01-02 16:31 | disposition home or self-care (01) ==
LOC: ED 14:36
DX: R10.2 Pelvic and perineal pain (principal); N83.201 Unspecified ovarian cyst, right side; N20.0 Calculus of kidney; F17.200 Nicotine dependence, unspecified, uncomplicated; Z79.82 Long term (current) use of aspirin
CPT/HCPCS: 36415; 74176; 80053; 81003; 81025; 83690; 85025; 99283; 99284; A9270; 81001; 87086

== ENCOUNTER 2018-10-14 17:32 | Outpatient (CLI) | payer OTHER ==
[2018-10-14 17:59] LABS: BILIRUBIN,URINE NEGATIVE (NEGATIVE); GLUCOSE, URINE (UA) NEGATIVE (NEGATIVE); KETONES,URINE (UA) NEGATIVE (NEGATIVE); LEUKOCYTE ESTERASE, URINE NEGATIVE (NEGATIVE); NITRITE,URINE NEGATIVE (NEGATIVE); OCCULT BLOOD,URINE NEGATIVE (NEGATIVE); PH,URINE 6.5 PH (5.0-7.5); PROTEIN,URINE NEGATIVE (NEGATIVE); UROBILINOGEN,URINE 0.2 (NORMAL) E.U./dL (NORMAL)
[2018-10-14 18:07] LABS: CLARITY,URINE HAZY (CLEAR)
[2018-10-14 18:08] LABS: BACTERIA,URINE Many /HPF (None Seen); RBC,URINE None Seen /HPF (0-5); SQUAMOUS EPITHELIAL CELL,UR MANY Squamous (<= Few); YEAST,URINE PRESENT
--- NOTE | 2018-10-14 22:12 | Ultrasound Report ---
Reason: right hip,groin pain Procedure Date: 10/14/2018 Accession Number: [id number] / [id number] Procedure: US - Duplex Ext Veins Right CPT Code: FULL RESULT: EXAM: RIGHT LOWER EXTREMITY VENOUS ULTRASOUND EXAM DATE: 10/14/2018 08:58 PM. CLINICAL HISTORY: 35 weeks with factor V. Right groin pain. Right hip pain. COMPARISON: None. TECHNIQUE: Real-time sonographic vascular imaging was performed by the stator winder through the lower extremity utilizing both color-flow and Doppler spectral analysis. Multiple market survey representative static images were saved for review. FINDINGS: Nonocclusive superficial thrombosis seen within the right greater saphenous vein and there appears to be slow flow present. Nonocclusive deep venous thrombosis seen throughout the superficial femoral vein with slow flow noted. Nonocclusive deep venous thrombosis seen within the right popliteal vein. There is limited visualization of the posterior tibial and peroneal veins. Slow flow is seen at the right common femoral vein and greater saphenous vein junction. IMPRESSION: Nonocclusive superficial thrombosis seen within the right greater saphenous vein and there appears to be slow flow present. Nonocclusive deep venous thrombosis seen throughout the superficial femoral vein with slow flow noted. Nonocclusive deep venous thrombosis seen within the right popliteal vein. There is limited visualization of the posterior tibial and peroneal veins. Slow flow is seen at the right common femoral vein and greater saphenous vein junction. RADIA The critical result notification system was initiated by Dr. Nadine Zuleta at 10:04 PM on 10/14/2018. The above critical result findings were discussed with Gayathri Menjivar by Dr. Nadine Zuleta at 10:10 PM on 10/14/2018.
[2018-10-14] MEDS ORDERED: ENOXAPARIN 80 MG/0.8 ML SYRINGE SUBQ SCH (23:00)
[2018-10-15 00:50] VITALS: BP 104/69
--- NOTE | 2018-10-15 04:02 | HISTORY & PHYSICAL EXAMINATION ---
Addendum: Pt's pharmacy was called at 09:30 on 10/15, [facility] called in, they think that they will have Rx ready by noon. Pt called with update. She will come to triage at 11:30 if the Rx has not yet been filled. DATE OF SERVICE: 10/14/2018 Physician: Gayathri Menjivar MD CHIEF COMPLAINT: Right leg pain. HISTORY OF PRESENT ILLNESS: Patient had an acute onset of right leg pain in the groin and calf area when she was rolling over in bed 3 days ago. Since that time, some mild pain in those areas has persisted. Today, she noticed that she was starting to have some skin changes in the right inner thigh, with some red mottling seen. She also had a small degree of swelling on the right that was not present on the left. She became concerned and came to Triage. She is known factor V Leiden heterozygote status. For this, she has been taking aspirin during the . For the past few weeks, she had been taking aspirin infrequently due to caregiving responsibilities and feeling too stressed for self-care. Also, with her ill child who has needed care in [place], she has been driving [address] about 4 times per week. The patient generally does not void or take any breaks during these drives. REVIEW OF SYSTEMS: No chest pain. No shortness of breath. No hemoptysis. No coughing. No contractions, no vaginal bleeding, no leaking of water. She is experiencing good movement. Other review of systems is negative. PAST MEDICAL HISTORY 1. Factor V Leiden heterozygote. 2. History of gestational diabetes in a prior . 3. History of hypothyroid in a prior , but not in this one. 4. Desires sterilization. PAST SURGICAL HISTORY: section x3. MEDICATIONS 1. Aspirin 81 mg daily. 2. vitamins. 3. Pepcid and Tums p.r.n. ALLERGIES: NO KNOWN DRUG ALLERGIES. SOCIAL HISTORY: No tobacco, alcohol or drug use. Patient is a [id number] mom. FAMILY HISTORY: Her maternal grandparents had heart attacks and strokes at elderly ages. No family history of DVT or pulmonary embolism. Her mother's side of the family is notable for multiple aunts and uncles who have been unaffected by VTE. Patient's siblings also have not been affected. OBSTETRICAL HISTORY: Patient is a 28-year-old G4, P2-1-0-3. She has chosen to get her OB care at [facility] in [place]. DATING: ANNIKA 11/14/2018 by LMP, consistent with a 13 week ultrasound. VACCINE: Status post flu shot and Tdap. LABORATORIES: Patient with LGSIL Pap. Otherwise, her labs are normal. Please see her scanned and record for further details. ANATOMY: Normal anatomy scan with a posterior placenta and normal fluid. GROSS: Has been falling off as of late. Her estimated weight was in the 45th percentile at her anatomy ultrasound. This has dropped to 16th percentile at 32 weeks. PRIOR HISTORY: G1 in 2009, delivered at 32 weeks and 0 days. She was induced for severe intrauterine growth restriction. Her was 2 pounds and 3 ounces. She required a section for intolerance of labor. Due to the severe IUGR she was checked for coagulation problems, and that is when her factor V Leiden was diagnosed. G2 was a at 38 weeks and 0 days, as the patient presented in labor. She delivered an AGA baby. G3 was in 2015. She had a repeat scheduled section at 39 weeks. She had an AGA baby. G4 is current. PROBLEMS 1. Factor V heterozygote. Patient was advised to take aspirin 81 mg daily with post section anticoagulation anticipated. She had a maternal medicine consult. She had no history of VTE. She did not have any significant family history for VTE. 2. History of severe intrauterine growth restriction. She underwent ultrasounds for this and indeed her growth is falling off. 3. Prior section x3. Her placenta is currently posterior. 4. History of gestational diabetes with a prior . Her diabetes screening this has been normal, with a normal A1c, and then a 1-hour glucose tolerance test in the second trimester that was 90. 5. History of hypothyroidism with a prior : She has been off all medications since that and she had normal thyroid screening this . 6. Desires sterilization: Her tubal papers were signed on 09/05/2018. 7. Low-grade MARSHA Pap smear: Pap smear is planned. OBJECTIVE VITAL SIGNS: Patient is afebrile with normal vital signs. Her heart rate is normal. GENERAL: She is alert and in no apparent distress. HEENT: Head is atraumatic and normocephalic. Eyes with normal ocular movements. Mouth with good dentition. ABDOMEN: Gravid. LOWER EXTREMITIES: Left side is normal. Right side with subtle increased swelling throughout the entire leg. This is nonpitting. INTEGUMENT: The right inner thigh is affected by a pink, striated, lattice patterned macular area. There is no skin disruption. NEUROLOGIC: Normal gait. PSYCHIATRIC: Affect is anxious. GENERAL: Patient is well groomed and maintains good eye contact. STUDIES: Nonstress test is category 1 and without contractions. Lower extremity ultrasound is remarkable for femoral and popliteal deep vein thromboses on the right leg. There is flow maintained in both of these veins. IMPRESSION AND PLAN: A 28-year-old G4, P2-1-0-3 at 35 weeks and 4 days by last menstrual period, consistent with a 13-week ultrasound with the new diagnosis of a deep vein thrombosis. The femoral and popliteal veins are affected and they are nonocclusive. The patient is a known factor V heterozygote. Notably, she has not been taking her aspirin as directed. She has also been spending 4 hours driving about 4 times per week. Her drive is 2 hours, and she has not been stopping to move during the drive. I discussed her care with a perinatologist financial sales consultant at [facility]. 1. Lovenox 70 mg subcutaneous was started this evening. Patient weighs 70 kilograms. 2. Return to triage at 11 a.m. tomorrow, unless she hears otherwise. 3. I will call her pharmacy tomorrow to see when she would be able to actually lemon picker her Lovenox. If she is unable to immediately obtain it, then we will continue subcutaneous injections in triage. Otherwise, injection teaching was done today and patient was able to perform her own injection, and was able to describe the process of medication preparation and injection. 4. Patient was advised to avoid flexion of the hip as much as possible. She is to ambulate frequently and to remain active at home. She may continue to drive, but needs to exit the car every hour in order to ambulate. She also can try to change her seat positioning, in order to extend the hip as much as possible. She was given pulmonary embolism precautions and told to call 911 if she has any of this. 5. She was advised to hydrate with 3 liters or 100 ounces of water daily. 6. Followup: [facility] will call the patient tomorrow to set up an appointment with them on Wednesday. Patient was advised that if she has not heard from them by midmorning, then she should give them a call. Patient has an appointment already scheduled with her general BRICKMASON SUPERVISOR on Wednesday. 7. Labor management: Patient was advised that the timing of blood thinners and delivery is important. If she does experience symptoms of labor including contractions every 10 minutes, vaginal bleeding, leaking of fluid, or decreased movement. She is to call her doctor immediately to seek advice for when to come in and whether or not she should take further anticoagulation. 8. Stop home aspirin use. 9. Continue normal activity at home and avoid prolonged resting. 10. No signs of pulmonary embolism today. Patient appears extremely well. 11. wellbeing is reassuring with good movement appreciated in a category 1 NST. TD: 10/15/2018 01:21 MTDYsabel
== END 2018-10-15 00:35 | disposition home or self-care (01) ==
LOC: WFO 17:32 → FBP 17:37 → WFO 10-15 00:35
PROVIDERS: ATTEND Obstetrics & Gynecology
DX: O22.33 Deep phlebothrombosis in pregnancy, third trimester (principal); I82.411 Acute embolism and thrombosis of right femoral vein; I82.431 Acute embolism and thrombosis of right popliteal vein; O22.23 Superficial thrombophlebitis in pregnancy, third trimester; I82.4Y1 Acute embolism and thrombosis of unspecified deep veins of right proximal lower extremity; Z3A.35 35 weeks gestation of pregnancy; O99.113 Other diseases of the blood and blood-forming organs and certain disorders involving the immune mechanism complicating pregnancy, third trimester; D68.51 Activated protein C resistance; Z86.32 Personal history of gestational diabetes; Z86.39 Personal history of other endocrine, nutritional and metabolic disease; O36.5930 Maternal care for other known or suspected poor fetal growth, third trimester, not applicable or unspecified; O34.219 Maternal care for unspecified type scar from previous cesarean delivery; O34.43 Maternal care for other abnormalities of cervix, third trimester; R87.619 Unspecified abnormal cytological findings in specimens from cervix uteri
CPT/HCPCS: 81001; 93971; 96372; 99214; J1650; 87086

== ENCOUNTER 2018-10-20 09:29 | Outpatient (CLI) | payer OTHER ==
[2018-10-20 09:43] VITALS: BP 110/73
[2018-10-20 11:34] LABS: PT - PROTHROMBIN TIME 11.3 secs (9.9-12.6)
[2018-10-20 11:50] LABS: PARTIAL THROMBOPLASTIN TIME 28.9 secs (24.9-33.3)
[2018-10-20 12:08] LABS: D-DIMER 283.1 ng/mL (200.0-255.0)
--- NOTE | 2018-10-20 12:19 | Ultrasound Report ---
Reason: Hx: DVT, with increased pain down to behind knee Procedure Date: 10/20/2018 Accession Number: [id number] / [id number] Procedure: US - Duplex Ext Veins Right CPT Code: FULL RESULT: EXAM: RIGHT LOWER EXTREMITY VENOUS ULTRASOUND EXAM DATE: 10/20/2018 12:06 PM. CLINICAL HISTORY: Hx: DVT, with increased pain down to behind knee. COMPARISON: DUPLEX EXT VEINS RIGHT 10/14/2018 8:57 PM. TECHNIQUE: Real-time sonographic vascular imaging was performed by the hotel manager through the lower extremity utilizing both color-flow and Doppler spectral analysis. Multiple personal service representative static images were saved for review. FINDINGS: Common Femoral Vein (CFV): Normal. CFV-GSV Junction: Normal. Profunda Femoral Vein (PFV): Normal. Femoral Vein (FV) Prox: Normal. Femoral Vein (FV) Mid: Normal. Femoral Vein (FV) Dist: Normal. Popliteal Vein: Normal. Posterior Tibial Veins: Normal. Peroneal Veins: Normal. Other: Normal compressibility throughout and no evidence of intraluminal thrombus. IMPRESSION: No evidence for deep venous thrombosis. RADIA
--- NOTE | 2018-10-20 17:12 | HISTORY & PHYSICAL EXAMINATION ---
DATE OF SERVICE: 10/20/2018 Physician: Stan Jalloh MD IDENTIFICATION: Patient is a 28-year-old G4, P2-1-0-3, who is 36.3 weeks. Her EDC is 11/14/2018. CHIEF COMPLAINT: Right thigh and calf pain. HISTORY OF PRESENT ILLNESS: Patient is known to have a factor V Leiden coagulopathy. She was seen o n 10/14/2018 in the ED, at which time, she was evaluated for increasing pain on her right leg. She h ad a Doppler venous study, which was performed on the right lower extremity, which showed evidence of nonocclusive superficial thrombosis in the right greater saphenous vein as well as the superficial f emoral vein and the right popliteal vein. All of these showed slowing blood flow. For this reason, she was placed on Lovenox 70 mg subcutaneously twice daily. She was seen by her carbon sequestration plant operator gian downing, at which time, she was evaluated. She had traveled for 2 hours in a car, interrupted twice, both on the way to the doctor's appointment and on the way back. She has been taking her Lovenox as pres cribed. She has stopped her aspirin as prescribed. Last night, she developed right thigh pain as we ll as calf and popliteal pain. She states this pain has gotten progressively worse, feels as though it is a pulled muscle. She called her carbon sequestration plant operator, who told her to be evaluated here immediately. PAST MEDICAL HISTORY: She has a history of factor V Leiden deficiency. She also has a history of hy pothyroidism during one of her pregnancies. She has also had a right DVT without PE, as previously m entioned. PAST SURGICAL HISTORY: section x3, left eye surgery for strabismus. ALLERGIES: NONE KNOWN. CURRENT MEDICATIONS 1. Lovenox 70 mg subcutaneously b.i.d. 2. vitamins. HABITS: Patient denies the use of alcohol, tobacco, or street or addictive drugs. 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 She lives with her spouse and children. PHYSICAL EXAMINATION GENERAL: Well-developed, well-nourished female, in no acute distress. VITAL SIGNS: Show pulse of 86, respirations 18, blood pressure 110/73, temperature 36.9, 100% satura tion on room air. HEENT: Pupils are equal and round. Extraocular muscles intact. CARDIOVASCULAR: Regular rate and rhythm without murmurs. LUNGS: Lung anders are clear without rales or wheezes. Patient denies any chest pain. ABDOMEN: Gravid to 32 cm. Uterus is nontender. Patient notes motion. NST is reactive. LEGS: Patient has tenderness in her right calf, popliteal area, as well as right femoral area. Her right calf measures 35.3 cm, 3 inches below the patella. Her left calf measures 34.5 cm, 3 inches be low the patella. She has a positive Homans sign as well as calf tenderness. She has tenderness in t he medial thigh. DIAGNOSTIC DATA: She underwent a repeat Doppler flow study, which showed normal venous flow in both the femorals, popliteal, posterior tibial, and peroneal vein. There is no evidence of any DVTs. PTT was noted to be 28.9, INR 1.0, PT 11.3. Fibrinogen is 487. D-dimer is 283, upper limits of normal are 255. These results were discussed with Dr. Laguerre, and at this point, with negative Doppler venous flow study without evidence of any DVT, it is felt safe to send her home. She is instructed that, should things get progressively worse, she should call and return sooner. She is instructed to make sure s he pushes her fluids. She is also not to ride in a car any longer than 1 hour, and she is to get up and ambulate. She is instructed that, should she develop chest pain, shortness of breath, she should present immediately. She is scheduled for a section next week, and she has been given inst ructions on when to stop her Lovenox. TD: 10/20/2018 13:16
== END 2018-10-20 13:30 | disposition home or self-care (01) ==
LOC: WFO 09:29 → FBP 09:31 → WFO 13:30
PROVIDERS: ATTEND Obstetrics & Gynecology
DX: O99.89 Other specified diseases and conditions complicating pregnancy, childbirth and the puerperium (principal); M79.661 Pain in right lower leg; O22.23 Superficial thrombophlebitis in pregnancy, third trimester; I80.01 Phlebitis and thrombophlebitis of superficial vessels of right lower extremity; O99.113 Other diseases of the blood and blood-forming organs and certain disorders involving the immune mechanism complicating pregnancy, third trimester; D68.51 Activated protein C resistance; Z3A.36 36 weeks gestation of pregnancy; Z79.01 Long term (current) use of anticoagulants
CPT/HCPCS: 36415; 85379; 85384; 85610; 85730; 99213